=== PATIENT | male | born 1970 | race Caucasian/White ===

== ENCOUNTER 2018-05-27 16:05 | Emergency (ER) | payer SELFPAY ==
--- NOTE | 2018-05-27 18:05 | UC ---
Shoulder Pain HPI - HPI Summary HPI Summary: 47 y/o male presents to the urgent care c/o right shoulder pain s/p lifting scrap metal at a family members house 3 days ago.He has been taking Naproxen PO to alleviate symptoms. Pt states he can't raise his arm. 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 However this time he lifted a very heavy metal. He has decrease ROM, but denies numbness or tingling sensation over his Rt arm. pt denies fever, SOB, palpitations, chest pain, abdominal pain, N/V/D - History of Current Complaint Chief Complaint: UCUpperExtremity Stated Complaint: SHOULDER INJURY Time Seen by Provider: 05/27/18 18:03 Hx Obtained From: Patient Onset/Duration: Sudden Onset, Lasting Days - 3 days, Still Present, Worse Since - today Timing: Constant Severity Initially: Moderate Severity Currently: Severe Location Of Pain: Is Discrete @ - Rt shoulder Pain Intensity: 9 Pain Scale Used: 0-10 Numeric Character: Sharp Alleviating Factor(s): Rest, OTC Meds Associated Signs And Symptoms: Positive: Swelling - mild. Negative: Redness, Bruising, Fever, Weakness, Numbness/Tingling Related History: Dominant Hand Right - Risk Factors Non-Orthopedic Risk Factor: Negative DVT Risk Factors: Negative Septic Arthritis Risk Factor: Negative - Allergies/Home Medications Allergies/Adverse Reactions: Allergies Allergy/AdvReac Type Severity Reaction Status Date / Time bee venom protein (honey bee) Allergy Anaphylatic Verified 05/27/18 16:30 Shock PMH/Surg Hx/FS Hx/Imm Hx Previously Healthy: Yes - Pt denies PMHX - Surgical History Surgical History: None - Family History Known Family History: Positive: Cardiac Disease, Hypertension, Diabetes - Social History Occupation: Employed Full-time Lives: With Family Alcohol Use: Occasionally Substance Use Type: Marijuana Smoking Status (MU): Heavy Every Day Tobacco Smoker Household Exposure Type: Cigarettes - Immunization History Most Recent Influenza Vaccination: has never received Most Recent Tetanus Shot: unknown Most Recent Pneumonia Vaccination: has not received Review of Systems Constitutional: Negative Skin: Negative Eyes: Negative ENT: Negative Respiratory: Negative Cardiovascular: Negative Gastrointestinal: Negative Genitourinary: Negative Motor: Negative Neurovascular: Negative Musculoskeletal: Decreased ROM - RT shoulder, Other: - Rt shoulder pain s/p injury Neurological: Negative Psychological: Negative Is Patient Immunocompromised?: No All Other Systems Reviewed And Are Negative: Yes Physical Exam - Summary Physical Exam Summary: Vital Signs Reviewed: Yes GENERAL: Well-Appearing, No Pain Distress, Well-Nourished male w/o any apparent pain distress Eyes: Positive: Conjunctiva Clear - PERRL,EOMI ENT: Positive: Normal ENT inspection, Hearing grossly normal, Pharyngeal erythema - mild, Nasal drainage - clear, Uvula midline Neck: Positive: Supple, Nontender, No Lymphadenopathy Respiratory: Positive: Chest non-tender, Lungs clear, Normal breath sounds, No respiratory distress Cardiovascular: Positive: RRR, No Murmur, Pulses Normal, Brisk Capillary Refill Abdomen Description: Positive: Nontender, No Organomegaly, Soft. Negative: CVA Tenderness (R), CVA Tenderness (L) Bowel Sounds: Positive: Present Musculoskeletal: LF shoulder: The Rt shoulder is with/without obvious asymmetry or deformity when compared to the L shoulder. No ecchymosis or bruising, no crepitus. No bony deformity or prominence of humeral head. No erythema, warmth. No Point Tenderness to palpation over the clavicle, or scapula. positive tenderness over Acromioclavicular joint and humeral head with mild swelling, NT to palpation of the bicipital groove . NT to palpation of the muscles of the sternocleidomastoid, pectoralis, biceps/triceps, deltoid, trapezius, . Limited ROM due to pain especially in adduction and abduction.on both passive and active, internal/external rotation, flexion/extension. "empty can and drop arm test unable to perform due to pain. No axillary tenderness or lymphadenopathy. Normal sensation over the deltoid and fingers. Distal motor and neurovascular status is intact. Neurological Exam: Normal Psychological Exam: Normal Skin Exam: Normal Triage Information Reviewed: Yes Vital Signs: Initial Vital Signs Temp 98.0 F 05/27/18 16:25 Pulse 76 05/27/18 16:25 Resp 18 05/27/18 16:25 BP 153/93 05/27/18 16:25 Pulse Ox 98 05/27/18 16:25 Shoulder Course/Dx - Course Course Of Treatment: 47 y/o male presents to the urgent care c/o right shoulder pain s/p lifting scrap metal at a family members house 3 days ago.He has been taking Naproxen PO to alleviate symptoms. Pt states he can't raise his arm. 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 However this time he lifted a very heavy metal. He has decrease ROM, but denies numbness or tingling sensation over his Rt arm. pt denies fever, SOB, palpitations, chest pain, abdominal pain, N/V/D. Hx obtained. Pt given a toradol IM inj for pain by nurse. pt tolerated well IM inj and pain decrease. pt also given a shoulder sling to alleviate symptoms. RT shoulder X-ray orderd: Impression: No acute osseous injury observed. I-. stop performed: no records of control substances listed. Pt's Rx [place] PO as directed below due to severity of pain. Pt alos advised to alternate w/ Ibuprofen PO. Pt Advised to f/u with Orthopedic referral DR patterson in 1-2 days for further evaluation and treatment. Pt's BP is elevated today advised to decrease salt in diet, monitor BP and f/u with PCP for further management. D/c instructions explained. Pt understood and agreed w/ plan of care. Pt left clinic ambulating, A&OX3 - Differential Dx/Diagnosis Differential Diagnosis/HQI/PQRI: Arthritis, Contusion, Dislocation, Fracture ( Closed), Rotator Cuff Injury, Sprain, Strain, Tendonitis Provider Diagnoses: 1- RT shoulder pain. 2- Rt shoulder sprain. 3- Elelvated BP w/o Hx of HTN Discharge - Sign-Out/Discharge Documenting (check all that apply): Patient Departure - D/C home All imaging exams completed and their final reports reviewed: Yes - Discharge Plan Condition: Stable Disposition: HOME Prescriptions: HYDROcodone/ACETAMIN 5-325 MG* [[place] 5-325 TAB*] 1 tab PO Q6H PRN #12 tab MDD 1g/4h-4g/day PRN Reason: Pain Patient Education Materials: Shoulder Sprain (ED) Referrals: Jim Garcia MD [Primary Care Provider] - 2 Days Misha Patterson MD [Medical Doctor] - 2 Days Additional Instructions: 1-Please take medications as directed to alleviate pain and swelling. 2-Please apply ice, keep your shoulder immobilized with the shoulder sling for 4 days and then resume movement slowly 3- Please f/u with Orthopedic 2-3 days for further evaluation and treatment on your shoulder sprain - Billing Disposition and Condition Condition: STABLE Disposition: Home - Attestation Statements Provider Attestation: Per institutional requirements, I have reviewed the chart, however, I was not consulted specifically or made aware of this patient by the midlevel provider. I did not personally evaluate, interact with , or disposition this patient.
[2018-05-27 18:40] VITALS: BP 109/68
[2018-05-27] MEDS ORDERED: Ketorolac INJ* 30 MG/ML 1 ML VIAL IM ONE (18:51)
--- NOTE | 2018-05-28 07:45 | RAD ---
HISTORY: RT shoulder pain s/p injury COMPARISONS: None VIEWS: 4 , Frontal internal rotation, external rotation, outlet, and axillary views of the right shoulder FINDINGS: BONE DENSITY: Normal. BONES: There is no displaced fracture. JOINTS: There is mild osteoarthritis of the AC joint. ALIGNMENT: There is no dislocation. SOFT TISSUES: Unremarkable. OTHER FINDINGS: None. IMPRESSION: NO ACUTE OSSEOUS INJURY. IF SYMPTOMS PERSIST, RECOMMEND REPEAT IMAGING. R0
--- NOTE | 2018-05-28 11:10 | UC ---
- Progress Note Progress Note: XR final: IMPRESSION: NO ACUTE OSSEOUS INJURY. IF SYMPTOMS PERSIST, RECOMMEND REPEAT IMAGING. No change in plan of care Discharge - Sign-Out/Discharge Documenting (check all that apply): Post-Discharge Follow Up All imaging exams completed and their final reports reviewed: Yes - Discharge Plan Condition: Stable Disposition: HOME Prescriptions: HYDROcodone/ACETAMIN 5-325 MG* [[place] 5-325 TAB*] 1 tab PO Q6H PRN #12 tab MDD 1g/4h-4g/day PRN Reason: Pain Patient Education Materials: Shoulder Sprain (ED) Referrals: Jim Garcia MD [Primary Care Provider] - 2 Days Misha Bridges MD [Medical Doctor] - 2 Days Additional Instructions: 1-Please take medications as directed to alleviate pain and swelling. 2-Please apply ice, keep your shoulder immobilized with the shoulder sling for 4 days and then resume movement slowly 3- Please f/u with Orthopedic 2-3 days for further evaluation and treatment on your shoulder sprain - Billing Disposition and Condition Condition: STABLE Disposition: Home
== END 2018-05-27 19:25 | disposition home or self-care (01) ==
LOC: UCEAST 16:05
DX: F17.210 Nicotine dependence, cigarettes, uncomplicated (principal); S43.401A Unspecified sprain of right shoulder joint, initial encounter; X50.3XXA Overexertion from repetitive movements, initial encounter; Y93.89 Activity, other specified; Y92.009 Unspecified place in unspecified non-institutional (private) residence as the place of occurrence of the external cause; R03.0 Elevated blood-pressure reading, without diagnosis of hypertension; Z82.49 Family history of ischemic heart disease and other diseases of the circulatory system; Z83.3 Family history of diabetes mellitus; Z91.030 Bee allergy status
CPT/HCPCS: 96372; 99212; G0463; J1885

== ENCOUNTER 2019-02-26 11:33 | Emergency (ER) | payer OTHER ==
--- NOTE | 2019-02-26 12:35 | UC ---
Lower Extremity/Ankle HPI - HPI Summary HPI Summary: 48 y/o male presents to the urgent care accompany by . c/o Rt ankle pain for the past 3 days s/p having long walks every day. Pt reports pain is localized in the lateral side of his ankle and heel and radiates to his lower leg. Pain is 9/10 when he walks and 4/10 at rest associated w/ mild swelling over the lateral side. Today he started w/ a tingling sensation at times. Pt has taken Ibuprofen 800mg PO to alleviate symptoms. Last dose taken was around 0900AM. pt with right ankle pain, over the past few days, started with a tingle, but then it started to swell, and now he is having pain with walking. Pt states he he needs to be evaluated as soon as possible and given something for pain since he has to take his to the ER since she was recommended by her GYM to be evaluated for her diarrhea and possible food poisoning. Pt denies fever , rash, Hx of gout, previous injury to his ankle, SOB, chest pain, abdominal pain, N/V/d. - History of Current Complaint Chief Complaint: UCLowerExtremity Stated Complaint: R ANKLE INJURY Time Seen by Provider: 02/26/19 12:34 Hx Obtained From: Patient Onset/Duration: Gradual Onset - RT ankle pain s/p having long walks, Lasting Days - 3 days, Still Present, Worse Since - yesterday Severity Initially: Mild Severity Currently: Severe Pain Intensity: 9 Pain Scale Used: 0-10 Numeric Aggravating Factor(s): Standing, Ambulation Alleviating Factor(s): Rest, Elevation, OTC Meds - Ibuprofen 800mg PO Able to Bear Weight: Yes - w/ limping - Risk Factors Gout Risk Factors: Negative DVT Risk Factors: Negative Septic Arthritis Risk Factor: Negative - Allergies/Home Medications Allergies/Adverse Reactions: Allergies Allergy/AdvReac Type Severity Reaction Status Date / Time bee venom protein (honey bee) Allergy Anaphylatic Verified 02/26/19 11:55 Shock Home Medications: Home Medications Ibuprofen TAB* [Motrin TAB* 800 MG] 1 tab PO ONCE 02/26/19 [History Confirmed ] PMH/Surg Hx/FS Hx/Imm Hx Previously Healthy: Yes - Pt denies PMHX - Surgical History Surgical History: Yes Surgery Procedure, Year, and Place: eye surgeries- cross eye repair - Family History Known Family History: Positive: Cardiac Disease, Hypertension, Diabetes - Social History Occupation: Employed Full-time Lives: With Family Alcohol Use: Occasionally Substance Use Type: None Substance Use Comment - Amount & Last Used: hx marijuana Smoking Status (MU): Former Smoker Amount Used/How Often: chews Household Exposure Type: Cigarettes - Immunization History Most Recent Influenza Vaccination: has never received Most Recent Tetanus Shot: unknown Most Recent Pneumonia Vaccination: has not received Review of Systems All Other Systems Reviewed And Are Negative: Yes Constitutional: Positive: Negative Skin: Positive: Negative Eyes: Positive: Negative ENT: Positive: Negative Respiratory: Positive: Negative Cardiovascular: Positive: Negative Gastrointestinal: Positive: Negative Genitourinary: Positive: Negative Motor: Positive: Negative Neurovascular: Positive: Negative Musculoskeletal: Positive: Decreased ROM - RT ankle, Other: - RT ankle pain radiating to the lower leg s/p long walk Neurological: Positive: Negative Psychological: Positive: Negative Is Patient Immunocompromised?: No Physical Exam - Summary Physical Exam Summary: Vital Signs Reviewed: Yes General: well developed, well nourished male, sitting in the examining table w/ o any apparent distress Eyes: Positive: Conjunctiva Clear - PERRLA, EOMI, ENT: Positive: Normal ENT inspection, Hearing grossly normal, Pharynx normal, TMs normal Neck: Positive: Supple, Nontender, No Lymphadenopathy Respiratory: Positive: Chest non-tender, Lungs clear, Normal breath sounds, No respiratory distress Cardiovascular: Positive: RRR, No Murmur, Pulses Normal, Brisk Capillary Refill Abdomen Description: Positive: Nontender, No Organomegaly, Soft. Negative: CVA Tenderness (R), CVA Tenderness (L) Bowel Sounds: Positive: Present Musculoskeletal: RT ankle : Pt is able to bear weight and ambulate w/ limping. The R ankle is without obvious asymmetry or deformity when compared to the L ankle. Decreased ROM due to pain. mild swelling at the lateral malleolus, with tenderness to palpation all over the the ankle. Pt is very apprehensive to palpation due to pain. No ecchymosis or bruising observed. Drawer test, Talar tilt test or valgus or varus stress unable to perform since Pt states too much pain. Positive sensation over the Rt foot and Rt ankle, positive pulses, capillary refill intact Neurological Exam: Normal Psychological Exam: Normal Skin: warm and dry Triage Information Reviewed: Yes Vital Signs: Initial Vital Signs Temp 97.9 F 02/26/19 11:43 Pulse 74 02/26/19 11:43 Resp 18 02/26/19 11:43 BP 156/102 02/26/19 11:43 Pulse Ox 95 02/26/19 11:43 Lower Extremity Course/Dx - Course Course Of Treatment: 48 y/o male presents to the urgent care accompany by . c/o Rt ankle pain for the past 3 days s/p having long walks every day. Pt reports pain is localized in the lateral side of his ankle and heel and radiates to his lower leg. Pain is 9/10 when he walks and 4/10 at rest associated w/ mild swelling over the lateral side. Today he started w/ a tingling sensation at times. Pt has taken Ibuprofen 800mg PO to alleviate symptoms. Last dose taken was around 0900AM. pt with right ankle pain, over the past few days, started with a tingle, but then it started to swell, and now he is having pain with walking. Pt states he he needs to be evaluated as soon as possible and given something for pain since he has to take his to the ER since she was recommended by her GYM to be evaluated for her diarrhea and possible food poisoning. Pt denies fever , rash, Hx of gout, previous injury to his ankle, SOB, chest pain, abdominal pain, N/V/d. Hx obtained. Pt is hemodynamically stable w/o any pain distress sitting the wheel chair. On PE: R ankle is without obvious asymmetry or deformity when compared to the L ankle. Decreased ROM due to pain. mild swelling at the lateral malleolus observed , with out proportion tenderness to palpation all over the the ankle. Pt is very apprehensive to palpation due to pain. No ecchymosis or bruising observed. Drawer test, Talar tilt test or valgus or varus stress unable to perform since Pt states too much pain. Positive sensation over the Rt foot and Rt ankle, positive pulses, capillary refill intact on examination. Pt's symptoms discussed w/ Dr Braxton who recommended to do first an X-ray or Rt ankle. Rt ankle X-ray REPORT AND IMPRESSION: Negative for fracture or osteochondral lesion. Normal articular alignment and preserved joint spaces. Small dorsal bone spur at the head of the talus. Small Achilles tendon insertion bone spur. Mild soft tissue swelling over the lateral malleolus as per radiologist. Dr Braxton reviewed X- ray and states no Achiles Tendon rupture. Pt w/ possible achiles tendonitis and ankle spurs. Pt given Ibuprofen PO by the Nurse. Pt tolerated well medication. Pt declined ice. Pt explained the need to do an US of RT lower leg to r/o DVT or other abnormality since he states pain is severe and is very apprehensive to palpation. However he is very anxious and states he needs to take his to the ER and request medication for his pain. Pt strongly advised since he is taking his to the ER, he should also be seen there for further evaluation and treatment in his severe pain r/o DVT. Pt's ankle immobilized w/ CAM boot and given crutches so he can ambulate more comfortably and Rx Ravia as directed below. Pt's BP is elevated today advised to decrease salt in diet, monitor BP and f/u with PCP for further management. Emphasis was made to Pt on the importance to go to [facility] ER if not improvement of pain. Pt understood and agreed w/ plan of care and left clinic hemodynamically stable, A&Ox3 ambulating w/ the help of crutches. - Differential Dx/Diagnosis Differential Diagnosis/HQI/PQRI: Arthritis, Contusion, DVT, Fracture (Closed), Gout, Infection, Sprain, Strain, Tendonitis, Other - achiiles tendon rupture Provider Diagnosis: Acute right ankle pain, Achilles tendinitis, right leg, Bone spur of right ankle, Elevated BP without diagnosis of hypertension Discharge - Sign-Out/Discharge Documenting (check all that apply): Patient Departure - hihgly recommended to go to the ER for further evaluation on your ankle pain All imaging exams completed and their final reports reviewed: Yes - Discharge Plan Condition: Stable Disposition: HOME-RECOMMEND TO ED Prescriptions: HYDROcodone/ACETAMIN 5-325 MG* [Ravia 5-325 TAB*] 1 tab PO Q8H PRN #12 tab MDD 1g/4h-4g/day PRN Reason: Pain Patient Education Materials: Achilles Tendinitis (ED) Forms: *Work Release Referrals: Isaias Hernandez MD [Primary Care Provider] - 1 Day Justus Villalobos MD [Medical Doctor] - 2 Days Additional Instructions: 1-Because of your severe RT ankle pain I highly recommend you to go to the ER for further evaluation and treatment on your Rt ankle pain, if no improvement w / medications. 2-Please apply ice, keep your ankle immobilized with the CAM boot. Avoid weight bearing using the crutches. Elevate your ankle. Continue taking Ibuprofen and alternate w/ Ravia as directed to alleviate pain 3- Please f/u with Orthopedic Dr Villalobos in 1-2 days for further evaluation and treatment on your RT ankle pain. . 4- Your BP is elevated today. Please take your BP medications and decrease salt in your diet, monitor BP and if it continues to be elevated please f/u with your PCP for further management. If you develop chest pain, dizziness, visual disturbances, SOB, or severe DALTON please go immediately to the ER for further management - Billing Disposition and Condition Condition: STABLE Disposition: Home-Recommend to ED - Attestation Statements Provider Attestation: This patient was not seen by me. I was available for consult.
[2019-02-26] MEDS ORDERED: Ketorolac INJ* 30 MG/ML 1 ML VIAL IM ONE (12:57)
[2019-02-26 13:49] VITALS: BP 151/90
[2019-02-26] MEDS ORDERED: Ibuprofen TAB* 400 MG PO ONE (14:18)
== END 2019-02-26 14:40 | disposition home health service (06) ==
LOC: UCEAST 11:33
DX: M76.61 Achilles tendinitis, right leg (principal); R03.0 Elevated blood-pressure reading, without diagnosis of hypertension; Z87.891 Personal history of nicotine dependence
CPT/HCPCS: 99213; A9270-GY; G0463